=== PATIENT | male | born 1960 | race Caucasian/White ===

== ENCOUNTER 2021-01-13 15:08 | Emergency (ER) | payer SELFPAY ==
[~2021-01-13] VITALS: Ht 188 cm; Wt 131.5 kg
[2021-01-13] MEDS ORDERED: diphenhydrAMINE HCL 50 MG/ML VIAL ONE (15:22)
[2021-01-13] MEDS ORDERED: METOCLOPRAMIDE HCL 10 MG/2 ML VIAL ONE (15:23)
[2021-01-13] MEDS ORDERED: MECLIZINE HCL 25 MG TABLET ONE (15:23)
[2021-01-13 15:26] LABS: BASOPHILS # (AUTO) 0.1 /CMM (0.0-0.2); EOSINOPHILS % (AUTO) 1.3 % (0.0-6.0); HEMATOCRIT 42 % (39-51); HEMOGLOBIN 14.7 g/dL (13.5-17.5); LYMPHOCYTES # (AUTO) 1.3 /CMM (0.8-4.8); LYMPHOCYTES % (AUTO) 19.2 % (20.0-44.0); MEAN CORPUSCULAR HGB CONC 35 g/dl (31.0-36.0); MEAN CORPUSCULAR VOLUME 90 fL (80-96); MONOCYTES # (AUTO) 0.5 /CMM (0.1-1.30); NEUTROPHILS # (AUTO) 4.8 /CMM (1.8-8.9); NEUTROPHILS % (AUTO) 71.5 % (43.0-81.0); PLATELET COUNT (AUTO) 197 /CMM (150-450); RED BLOOD CELL COUNT(AUTO) 4.61 MIL/uL (4.5-6.0); WHITE BLOOD COUNT (AUTO) 6.8 K/uL (4.3-11.0)
[2021-01-13] MEDS ORDERED: diphenhydrAMINE HCL 50 MG/ML VIAL IV ONE (15:30)
[2021-01-13] MEDS ORDERED: METOCLOPRAMIDE HCL 10 MG/2 ML VIAL IV ONE (15:30)
[2021-01-13] MEDS ORDERED: IV NS 0.9% 1,000 ML BAG IV ONE (15:30)
[2021-01-13] MEDS ORDERED: MECLIZINE HCL 12.5 MG TABLET PO ONE (15:30)
--- NOTE | 2021-01-13 15:36 | NUR ---
[id number] C/O DIZZINESS, NAUSEA X 1 HOUR WHILE DRIVING. ZOFRAN 4MG ODT GIVEN IN FIELD. PT AAOX4, VSS. RR EVEN & UNLABORED. DENIES CP, SOB AT THIS TIME. PT SEEN & EVAL'D BY DR. MIX. -NEURO DEFICIT. PLACED ON [employer], SR. WILL CONT TO MONITOR.
[2021-01-13 15:53] LABS: ALANINE AMINOTRANSFERASE 58 U/L (12-78); ALBUMIN 3.9 g/dL (3.4-5.0); ALKALINE PHOSPHATASE 67 U/L (46-116); ASPARTATE AMINOTRANSFERASE 34 U/L (15-37); BILIRUBIN,DIRECT 0.1 mg/dL (0.0-0.2); BILIRUBIN,TOTAL 0.5 mg/dL (0.2-1.0); CARBON DIOXIDE 22 mmol/L (21-32); CHLORIDE 104 mmol/L (98-107); GLUCOSE 167 mg/dL (74-106); POTASSIUM 3.7 mmol/L (3.5-5.1); SODIUM SERUM 139 mmol/L (136-145); TOTAL PROTEIN, SERUM 7.1 g/dL (6.4-8.2); UREA NITROGEN, BLOOD 13 mg/dL (7-18)
[2021-01-13] MEDS ORDERED: ONDA4TAB5 PO (17:06)
[2021-01-13] MEDS ORDERED: MECL-159 PO (17:06)
[2021-01-13 17:10] LABS: CALCIUM, SERUM 9.3 mg/dL (8.5-10.1)
[2021-01-13 17:24] VITALS: BP 132/70
== END 2021-01-13 17:24 | disposition home or self-care (01) ==
LOC: ER 15:11
DX: R42 Dizziness and giddiness (principal); R11.2 Nausea with vomiting, unspecified; I10 Essential (primary) hypertension; Z79.899 Other long term (current) drug therapy
CPT/HCPCS: 36415; 70450; 80048; 80076; 84484; 85025; 93005; 96361; 96374; 96375; 99285; J1200; J2765; J7030; J8597